=== PATIENT | female | born 1935 | race Caucasian/White ===

== ENCOUNTER 2016-10-05 14:49 | Inpatient (IN) | payer OTHER ==
[2016-10-05] VITALS (19 sets, daily range): BP systolic 84–160; BP diastolic 52–91
[~2016-10-05] VITALS: Ht 154.9 cm; Wt 51.7 kg
--- NOTE | ~2016-10-05 | 2DMMODE ---
[facility] [address] [place] [address] 2 D/M-MODE ECHOCARDIOGRAM Name: WESTON SHAH Room #: 240-P ADM IN M.R.#: [id number] Admission: 10/05/16 Attend Phys: Dontrell Hunter Discharge: Date of : 37 Date of Service: 10/06/16 1338 Report #: [id number] THIS REPORT FOR: //name// APPROVED REPORT Study performed: 10/05/2016 20:04:36 EXAM: Comprehensive 2D, Doppler, and color-flow Echocardiogram Patient Location: Bedside Room #: 240 Status: stat/on-call Other Information Study Quality: Adequate/patient in ICU on vent Indications Stat echo for chest pain and short of breath. Aortic stenosis. 2D Dimensions LVEF(%): 33.33 (>50%) IVSd: 16.24 (7-11mm) LVOT Diam: 20.27 (18-24mm) LVDd: 47.71 mm PWd: 16.48 (7-11mm) LVDs: 40.16 (25-40mm) Ferrari's LVEF: 33.33 % Aortic Valve AoV Peak Kamran.: 2.01 m/s AO Peak Gr.: 16.14 mmHg LVOT Max P.64 mmHg AO Mean Gr.: 9.61 mmHg AO V2 Mean: 1.49 m/s LVOT Max V: 0.64 m/s AO V2 VTI: 36.50 cm DARON Vmax: 1.03 cm2 Mitral Valve E/A Ratio: 0.5 MV Decel. Time: 258.01 ms MV E Max Kamran.: 0.51 m/s MV A Kamran.: 1.11 m/s MV PHT: 74.82 ms Tricuspid Valve TR Peak Kamran.: 1.99 m/s RAP Estimate: 10.00 mmHg TR Peak Gr.: 15.86 mmHg PA Pressure: 26.00 mmHg [facility] [place] [address] 2 D/M-MODE ECHOCARDIOGRAM Name: WESTON SHAH Room #: 240- ADM IN [facility].#: [id number] Admission: 10/05/16 Attend Phys: Dontrell Hunter Discharge: Date of : 37 Date of Service: 10/06/16 1338 Report #: [id number] Left Ventricle The left ventricle is normal size. Moderate concentric left ventricular hypertrophy. Left ventricular systolic function is severely decreased. LVEF 25%. Grade I - abnormal relaxation pattern. Right Ventricle The right ventricle is normal size. Right ventricle is hypokinetic. Atria Left atrium is dilated. The right atrium size is normal. Aortic Valve Aortic valve is heavily calcified. Trace aortic regurgitation. There is moderately- severe valvular aortic stenosis. Calculated aortic valve area is 1.0 cm2 with maximum pressure gradient of 16mmHg and mean pressure gradient of 10mmHg. Mitral Valve Mitral valve leaflets are thickened. There is mitral annular calcification. Mild mitral regurgitation. No evidence of mitral valve stenosis. Tricuspid Valve The tricuspid valve is normal in structure. There is trace tricuspid regurgitation. The right atrial pressure is estimated at 10 mmHg. Estimated PAP is 25-30mmHg. Great Vessels IVC is dilated and collapses >50% with inspiration. Pericardium A small pericardial effusion is noted. <Conclusion> Left ventricular systolic function is severely decreased. LVEF 25%. Grade I diastolic dysfunction Aortic valve is heavily calcified. There is moderately- severe valvular aortic stenosis. Calculated aortic valve area is 1.0 cm2 with maximum pressure gradient of 16mmHg and mean pressure gradient of 10mmHg. Mitral valve leaflets are thickened, mitral annular calcification. [facility] [address] [place] [address] 2 D/M-MODE ECHOCARDIOGRAM Name: WESTON SHAH Room #: 240-P [facility] IN [facility]#: [id number] Admission: 10/05/16 Attend Phys: Dontrell Hunter Discharge: Date of : 37 Date of Service: 10/06/16 1338 Report #: [id number] Mild mitral regurgitation. A small pericardial effusion is noted. <ELECTRONICALLY SIGNED> By: Sarath Rehman MD, [facility] 10/06/16 1338 1338 37 Sarath Rehman MD, [facility] /INF
--- NOTE | ~2016-10-05 | EKG ---
[place] [address] [facility] [place] [address] ELECTROCARDIOGRAM REPORT Name: WESTON SHAH Room #: 240-P ADM IN M.R.#: [id number] Admission: 10/05/16 Attend Phys: Nemesio Ahmadi MD Discharge: Date of : 37 Report #: [id number] THIS REPORT FOR: //name// [facility] ED Test Date: 2016-10-05 Test Time: 15:04:12 Pat Name: WESTON SHAH Department: Room: [facility] Gender: F Tie Puller: [id number] : 1935 Requested By: Rose Bragg Order Number: [id number] MD: Sarath Rehman Measurements Intervals [place] Rate: 88 P: 45 SD: 145 QRS: -40 QRSD: 165 T: 143 QT: 417 QTc: 505 Interpretive Statements Sinus rhythm Probable left atrial enlargement Left bundle branch block No previous ECG available for comparison Electronically Signed On 10-07-2016 10:46:47 CDT by Sarath Rehman [email or web address] <ELECTRONICALLY SIGNED> By: Sarath Rehman MD, [facility] 10/07/16 1046 1504 1504 Sarath Rehman MD, [facility] /EPI
--- NOTE | ~2016-10-05 | HC ---
[facility] [place] [address] [place] [address] CONSULTATION Name: WESTON SHAH Room #: 463-P ADM IN M.R.#: [id number] Admission: 10/05/16 Attend Phys: Nemesio Ahmadi MD Discharge: Date of : 36 Report #: [id number] THIS REPORT FOR: //name// CC: Cat TORRES physician/PCP Tariq Ahmadi DATE OF SERVICE: 10/05/2016 REASON FOR CONSULTATION: Shortness of breath. HISTORY OF PRESENT ILLNESS: The patient is an 81-year-old woman with a fairly limited past history who is currently intubated and sedated and unable to give any history, which is now provided by her son over the telephone. About a week ago, her son went to visit her at her apartment, she was sitting up in a chair short of breath. She felt better throughout the day, although throughout the week, developed progressive exertional breathlessness. They went out to eat on Saturday at lunch and she had trouble getting to the restaurant due to exertional breathlessness. No lower extremity edema. No real chest pain or pressure to speak of. There is no prior history of heart failure, no prior history of myocardial infarction, no history of specific dysrhythmias. Her son tells me that she has felt well and really did not go to doctors if there was no reason to. ALLERGIES: There are no known drug allergies. MEDICATIONS: She takes no medicines on a regular basis. PAST MEDICAL HISTORY: Notable for 2013 shingles eruption, left hip replacement. No other significant illnesses, hospitalizations or surgeries. SOCIAL HISTORY: She is a nonsmoker, although was exposed to second-hand smoke, her was a 5-pack per day smoker. Their family was displaced during World War II. FAMILY HISTORY: Unremarkable for premature coronary disease. REVIEW OF SYSTEMS: Not obtainable. PHYSICAL EXAMINATION: GENERAL: Reveals an elderly woman who is intubated and ventilated. VITAL SIGNS: Blood pressure is 128/91, heart rate is 76, saturations are 97% on supplemental oxygen. HEENT: There are neither xanthelasma, subcutaneous xanthomata, oral mucosal or [facility] [address] [place] [address] CONSULTATION Name: WESTON SHAH Room #: 463-P [facility] IN [facility].#: [id number] Admission: 10/05/16 Attend Phys: Nemesio Ahmadi MD Discharge: Date of : 36 Report #: [id number] digital cyanosis nor kyphoscoliosis present. CHEST: Reveals diffuse rhonchi, bibasilar and mid lung field rales, jugular venous pressure is elevated to the angle of the mandible. Heart sounds are inaudible over her breath sounds. ABDOMEN: Soft, nontender. EXTREMITIES: Without cyanosis, clubbing or edema. Radial pulses are 2+. NEUROLOGIC: She is sedated with a nonfocal exam. LABORATORY DATA: EKG, sinus rhythm, left bundle branch block. Sodium 141, potassium 4.2, creatinine 1.2. Troponin 3.59. ProBNP of 23,000. White count 7.7, hemoglobin 13, hematocrit 41, platelet count 219, pH 7.05, pCO2 of 75, pO2 of 99. Chest x-ray demonstrates bilateral infiltrates. CT of chest demonstrates no evidence of pulmonary embolism. There is diffuse bilateral airspace disease. EKG, sinus rhythm with left bundle branch block. IMPRESSION: 1. Acute systolic heart failure. 2. Hypoxemic respiratory failure. 3. Left bundle branch block. RECOMMENDATIONS: 1. Stat echocardiogram. 2. Intravenous diuretic therapy. 3. Serial cardiac enzymes. Further thoughts and plans will be forthcoming based on this immediate evaluation. Thank you for asking me to participate in the care of this woman; 70 minutes of critical care time, 6:50 p.m. to 8:07 p.m. <ELECTRONICALLY SIGNED> By: Sarath Rehman MD, FACC 10/09/16 1634 2004 0322 Sarath Rehman MD, FACC /nt
--- NOTE | ~2016-10-05 | HC ---
[facility] [place] [address] [place] [address] CONSULTATION Name: WESTON SHAH Room #: 240- ADM IN M.R.#: [id number] Admission: 10/05/16 Attend Phys: Nemesio Ahmadi MD Discharge: Date of : 36 Report #: [id number] THIS REPORT FOR: //name// CC: Cat TORRES physician/PCP Tariq Ahmadi REASON FOR CONSULTATION: Acute respiratory failure. Forty minutes critical care time. IMPRESSION: 1. Acute hypoxic respiratory failure. 2. Acute systolic congestive heart failure. 3. Non-Q wave myocardial infarction. 4. Left bundle branch block. PLAN: Aerosol therapy, ventilator protocol, check cultures. We will cover for possible aspiration, DVT and ulcer prophylaxis per ICU protocol, ventilator protocol discussed with nurse and the ER physician and cardiology. HISTORY OF PRESENT ILLNESS: An 81-year-old female who I met on ventilator complained approximately 7 days ago with severe chest pain and has had increasing difficulty breathing and short of breath. No chest pain at the time in the ER. Required intubation after I spoke to ER physician. MEDICATIONS: Unknown. ALLERGIES: Unknown. FAMILY HISTORY: Noncontributory. SOCIAL HISTORY: Negative tobacco or ETOH. PHYSICAL EXAMINATION: GENERAL: Good health. VITAL SIGNS: Pulse 79, respirations 20, BP 98/50. LUNGS: Crackles bilaterally. HEART: Regular. ABDOMEN: Bowel sounds present. EXTREMITIES: Showed positive edema, varicosities. NEUROLOGIC: Sedated. Currently on ventilator. EKG, left bundle, D-dimer 4.14. BUN 21, creatinine 1.2. Chest x-ray showed bilateral infiltrates. [facility] [address] [place] [address] CONSULTATION Name: WESTON SHAH Room #: 240-P ADM IN M.R.#: [id number] Admission: 10/05/16 Attend Phys: Nemesio Ahmadi MD Discharge: Date of : 36 Report #: [id number] LABORATORY DATA: A pH 7.056, pCO2 of 75, pO2 of 99, BiPAP 14/6, CTA showed bilateral infiltrates, urine legionella and strep were negative. Venous Doppler negative. CT PE, showed no emboli. Troponin 3.59, BNP 23,561. By: 2214 0054 Cat Gillespie MD /nt
[2016-10-05 15:20] LABS: ABSOLUTE NEUTROPHILS 4.9 thou/uL (1.4-8.2); BASOPHILS 0.7 % (0.0-2.0); EOSINOPHILS 2.8 % (0.0-3.0); HEMATOCRIT 41.2 % (37.0-47.0); HEMOGLOBIN 13.8 gm/dL (12.0-15.0); MANUAL DIFF NO; MCH 29.7 pg (26.0-34.0); MCHC 33.5 g/dL (28.0-37.0); MCV 88.6 fL (80.0-100.0); MONOCYTES 10.9 % (1.0-8.0); PLATELET COUNT 219 thou/uL (150-400); POLYS 64.6 % (36.0-66.0); RBC 4.65 mil/uL (4.20-5.00); RDW 13.8 % (10.5-14.5); WBC 7.7 thou/uL (4.0-11.0)
[2016-10-05 15:31] LABS: CREATININE 1.2 mg/dL (0.6-1.0); POTASSIUM 4.2 mmol/L (3.5-5.1)
[2016-10-05 15:47] LABS: TROPONIN-I 3.59 ng/mL (<0.04-0.07)
[2016-10-05 16:50] LABS: ABG SAMPLE TYPE ARTERIAL; BE(vivo) -11.1 mmol/L (-2 to +3); HCO3 20.7 mmol/L (22.0-26.0); LACTATE 2.27 mmol/L (0.5-2.0); O2(CT) 19.2 mL/dL (15.0-23.0); O2Hb 92.5 % (92.0-98.0); PO2 99.3 mmHg (80.0-100.0); sO2 94.1 % (92.0-98.0)
[2016-10-05 16:51] LABS: PCO2 75.3 mmHg (35.0-45.0); STICK SITE L.RADIAL; pH 7.056 (7.360-7.450)
[2016-10-05 16:52] LABS: Pressure Support 14 cm H20
[2016-10-05 20:30] LABS: ABG SAMPLE TYPE ARTERIAL; BE(vivo) -0.8 mmol/L (-2 to +3); HCO3 26.1 mmol/L (22.0-26.0); LACTATE 1.69 mmol/L (0.5-2.0); O2(CT) 19.4 mL/dL (15.0-23.0); O2Hb 93.9 % (92.0-98.0); PCO2 52.4 mmHg (35.0-45.0); PO2 79.2 mmHg (80.0-100.0); sO2 94.6 % (92.0-98.0); tCO2 27.8 mmol/L (24.0-30.0)
[2016-10-05 20:31] LABS: STICK SITE R.RADIAL; TIDAL VOLUME 450 ml; pH 7.316 (7.360-7.450)
[2016-10-05 20:42] LABS: APTT 35.4 Seconds (24.5-32.8); INR 1.1; PROTIME 11.1 Seconds (9.3-11.4)
[2016-10-06] VITALS (84 sets, daily range): BP systolic 71–135; BP diastolic 44–75
[2016-10-06 04:56] LABS: HEMATOCRIT 38.8 % (37.0-47.0); HEMOGLOBIN 12.9 gm/dL (12.0-15.0); MCH 29.3 pg (26.0-34.0); MCHC 33.1 g/dL (28.0-37.0); MCV 88.4 fL (80.0-100.0); PLATELET COUNT 198 thou/uL (150-400); RBC 4.39 mil/uL (4.20-5.00); RDW 14.1 % (10.5-14.5); WBC 10.8 thou/uL (4.0-11.0)
[2016-10-06 05:03] LABS: MANUAL DIFF YES
[2016-10-06 05:27] LABS: ALBUMIN 2.8 g/dL (3.4-5.0); CALCIUM 8.3 mg/dL (8.5-10.1); CREATININE 1.1 mg/dL (0.6-1.0); POTASSIUM 3.7 mmol/L (3.5-5.1); TOTAL BILIRUBIN 0.3 mg/dL (<0.1-1.0); TOTAL PROTEIN 6.5 g/dL (6.4-8.2)
[2016-10-06 05:29] LABS: TROPONIN-I 2.63 ng/mL (<0.04-0.07)
[2016-10-06 05:31] LABS: ABG SAMPLE TYPE ARTERIAL; BE(vivo) 2.6 mmol/L (-2 to +3); HCO3 25.7 mmol/L (22.0-26.0); LACTATE 1.58 mmol/L (0.5-2.0); O2(CT) 18.9 mL/dL (15.0-23.0); O2Hb 97.8 % (92.0-98.0); PCO2 34.6 mmHg (35.0-45.0); PO2 135.9 mmHg (80.0-100.0); pH 7.488 (7.360-7.450); sO2 98.9 % (92.0-98.0); tCO2 26.7 mmol/L (24.0-30.0)
[2016-10-06 05:32] LABS: ABG COMMENT A/C 22; STICK SITE R.RADIAL; TIDAL VOLUME 450 ml
[2016-10-06 05:51] LABS: ABSOLUTE NEUTROPHILS 8.7 thou/uL (1.4-8.2); LARGE PLATELETS OCCASIONAL; TOTAL CELL COUNT 100
[2016-10-06 07:57] LABS: CHOLESTEROL 175 mg/dL (<200); HDL CHOLESTEROL 57 mg/dL (>40); LDL CHOLESTEROL 98 mg/dL (<100); TC:HDL 3.1 Ratio (Not establshd); TRIGLYCERIDE 104 mg/dL (<150); VLDL 21 mg/dL (<40)
[2016-10-07] VITALS (45 sets, daily range): BP systolic 77–142; BP diastolic 45–76
[2016-10-07 05:23] LABS: ABG SAMPLE TYPE ARTERIAL; BE(vivo) 5.6 mmol/L (-2 to +3); LACTATE 1.08 mmol/L (0.5-2.0); O2(CT) 17.5 mL/dL (15.0-23.0); O2Hb 96.7 % (92.0-98.0); PO2 104.8 mmHg (80.0-100.0); pH 7.501 (7.360-7.450); sO2 98.2 % (92.0-98.0); tCO2 30.2 mmol/L (24.0-30.0)
[2016-10-07 05:25] LABS: ABG COMMENT A/C MODE; STICK SITE L.RADIAL; TIDAL VOLUME 450 ml
[2016-10-07 06:12] LABS: HEMATOCRIT 35.5 % (37.0-47.0); HEMOGLOBIN 11.7 gm/dL (12.0-15.0); MCH 29.4 pg (26.0-34.0); MCHC 33.1 g/dL (28.0-37.0); MCV 88.7 fL (80.0-100.0); RBC 3.99 mil/uL (4.20-5.00); RDW 14.2 % (10.5-14.5); WBC 10.2 thou/uL (4.0-11.0)
[2016-10-07 06:26] LABS: CALCIUM 8.4 mg/dL (8.5-10.1); CREATININE 1.2 mg/dL (0.6-1.0); POTASSIUM 3.4 mmol/L (3.5-5.1)
[2016-10-07 15:05] LABS: ABG SAMPLE TYPE ARTERIAL; BE(vivo) 6.4 mmol/L (-2 to +3); LACTATE 1.57 mmol/L (0.5-2.0); O2(CT) 17.9 mL/dL (15.0-23.0); O2Hb 95.8 % (92.0-98.0); PCO2 44.5 mmHg (35.0-45.0); PO2 88.4 mmHg (80.0-100.0); pH 7.461 (7.360-7.450); sO2 97.1 % (92.0-98.0); tCO2 32.4 mmol/L (24.0-30.0)
[2016-10-07 15:06] LABS: ABG COMMENT CPAP TRIAL.; Pressure Support 8 cm H20; STICK SITE L.RADIAL
[2016-10-07 17:16] LABS: MAGNESIUM 2.1 mg/dL (1.8-2.4); POTASSIUM 3.7 mmol/L (3.5-5.1)
[2016-10-08] VITALS (42 sets, daily range): BP systolic 83–151; BP diastolic 50–72
[2016-10-08 04:11] LABS: HEMATOCRIT 35.2 % (37.0-47.0); HEMOGLOBIN 11.9 gm/dL (12.0-15.0); MCH 29.9 pg (26.0-34.0); MCHC 33.8 g/dL (28.0-37.0); MCV 88.5 fL (80.0-100.0); RBC 3.98 mil/uL (4.20-5.00); RDW 14.1 % (10.5-14.5)
[2016-10-08 04:29] LABS: ALBUMIN 2.8 g/dL (3.4-5.0); CALCIUM 8.7 mg/dL (8.5-10.1); CREATININE 1.4 mg/dL (0.6-1.0); POTASSIUM 3.4 mmol/L (3.5-5.1); TOTAL BILIRUBIN 0.5 mg/dL (<0.1-1.0); TOTAL PROTEIN 6.8 g/dL (6.4-8.2)
[2016-10-08 13:15] LABS: ABG SAMPLE TYPE ARTERIAL; BE(vivo) 6.8 mmol/L (-2 to +3); HCO3 31.3 mmol/L (22.0-26.0); LACTATE 1.62 mmol/L (0.5-2.0); O2Hb 95.7 % (92.0-98.0); PCO2 44.4 mmHg (35.0-45.0); pH 7.466 (7.360-7.450); sO2 97.3 % (92.0-98.0); tCO2 32.7 mmol/L (24.0-30.0)
[2016-10-08 13:16] LABS: STICK SITE L.RADIAL
[2016-10-08 13:17] LABS: Pressure Support 8 cm H20; TIDAL VOLUME 470 ml
[2016-10-09] VITALS (16 sets, daily range): BP systolic 79–138; BP diastolic 39–81
[2016-10-09 05:04] LABS: HEMATOCRIT 36.4 % (37.0-47.0); HEMOGLOBIN 12.3 gm/dL (12.0-15.0); MCH 29.8 pg (26.0-34.0); MCHC 33.8 g/dL (28.0-37.0); MCV 88.3 fL (80.0-100.0); RBC 4.13 mil/uL (4.20-5.00); RDW 14.1 % (10.5-14.5); WBC 9.8 thou/uL (4.0-11.0)
[2016-10-09 05:30] LABS: ALBUMIN 2.9 g/dL (3.4-5.0); CALCIUM 9.3 mg/dL (8.5-10.1); CREATININE 1.3 mg/dL (0.6-1.0); POTASSIUM 3.9 mmol/L (3.5-5.1); TOTAL BILIRUBIN 0.7 mg/dL (<0.1-1.0); TOTAL PROTEIN 7.3 g/dL (6.4-8.2)
[2016-10-10 05:20] VITALS: BP 122/67
[2016-10-10 06:15] LABS: HEMATOCRIT 36.6 % (37.0-47.0); HEMOGLOBIN 12.2 gm/dL (12.0-15.0); MCH 29.8 pg (26.0-34.0); MCHC 33.4 g/dL (28.0-37.0); MCV 89.2 fL (80.0-100.0); RBC 4.1 mil/uL (4.20-5.00); RDW 13.7 % (10.5-14.5); WBC 7.5 thou/uL (4.0-11.0)
[2016-10-10 06:30] LABS: CALCIUM 8.9 mg/dL (8.5-10.1); CREATININE 1.1 mg/dL (0.6-1.0)
[2016-10-10 07:37] VITALS: BP 158/65
[2016-10-10 11:45] VITALS: BP 116/62
[2016-10-10 15:00] VITALS: BP 116/62
[2016-10-10 15:28] VITALS: BP 117/73
[2016-10-10] MEDS ORDERED: AUGMENTIN 875875 MG PO (16:41)
[2016-10-10] MEDS ORDERED: CARVEDILOL3.125 MG PO (16:42)
[2016-10-10] MEDS ORDERED: COZAAR 25 MG TA25 M2 PO (16:42)
[2016-10-10] MEDS ORDERED: LIPITOR 20 MG T20 M1 PO (16:42)
[2016-10-10] MEDS ORDERED: ASPIR 8181 MG PO (16:43)
[2016-10-10] MEDS ORDERED: ALDACTONE25 MG PO (16:43)
[2016-10-10] MEDS ORDERED: KLOR-CON 10 ER10 MEQ PO (16:43)
[2016-10-10] MEDS ORDERED: LASIX 20 MG TAB20 MG PO (16:43)
== END 2016-10-10 17:20 | disposition home health service (06) | DRG 208 ==
LOC: ER 14:49 → EROBS 18:08 → ICU 18:08 → 4W 10-09 12:14
PROVIDERS: Emergency Medicine; Family Medicine; Internal Medicine; Internal Medicine Cardiovascular Disease; Internal Medicine Pulmonary Disease
PROC: 02HV33Z Insertion of Infusion Device into Superior Vena Cava, Percutaneous Approach (ICD-10-PCS; principal; 2016-10-05)
PROC: 5A1945Z Respiratory Ventilation, 24-96 Consecutive Hours (ICD-10-PCS; principal; 2016-10-05)
PROC: 0BH17EZ Insertion of Endotracheal Airway into Trachea, Via Natural or Artificial Opening (ICD-10-PCS; principal; 2016-10-05)
DX: J96.01 Acute respiratory failure with hypoxia (principal); I21.4 Non-ST elevation (NSTEMI) myocardial infarction; I50.41 Acute combined systolic (congestive) and diastolic (congestive) heart failure; J69.0 Pneumonitis due to inhalation of food and vomit; E44.0 Moderate protein-calorie malnutrition; I44.7 Left bundle-branch block, unspecified; I35.0 Nonrheumatic aortic (valve) stenosis; R41.0 Disorientation, unspecified; Z96.642 Presence of left artificial hip joint; Z68.21 Body mass index [BMI] 21.0-21.9, adult
CPT/HCPCS: 10045; 10078; 27000

== ENCOUNTER 2018-06-13 10:33 | Emergency (ER) | payer OTHER ==
[~2018-06-13] VITALS: Ht 152.4 cm; Wt 72.6 kg
[~2018-06-13 10:33] MED LIST: ALDACTONE25 MG PO; ASPIR 8181 MG PO; AUGMENTIN 875875 MG PO; CARVEDILOL3.125 MG PO; COZAAR 25 MG TA25 M2 PO; KLOR-CON 10 ER10 MEQ PO; LASIX 20 MG TAB20 MG PO; LIPITOR 20 MG T20 M1 PO
[2018-06-13] MEDS ORDERED: NORCO 5-325 TA1 EACH PO (12:54)
[2018-06-13 13:21] VITALS: BP 137/68
== END 2018-06-13 13:21 | disposition home or self-care (01) ==
LOC: ER 10:33
DX: S42.212A Unspecified displaced fracture of surgical neck of left humerus, initial encounter for closed fracture (principal); W01.0XXA Fall on same level from slipping, tripping and stumbling without subsequent striking against object, initial encounter; Y93.89 Activity, other specified; Y92.89 Other specified places as the place of occurrence of the external cause; Y99.8 Other external cause status

== ENCOUNTER 2019-05-20 10:31 | Inpatient (IN) | payer OTHER ==
[~2019-05-20] VITALS: Ht 152.4 cm; Wt 56.9 kg
[~2019-05-20 10:31] MED LIST changes: +NORCO 5-325 TA1 EACH PO
[2019-05-20 10:36] VITALS: BP 127/61
[2019-05-20] MEDS ORDERED: SPIRONOLACTONE25 MG PO (11:10)
[2019-05-20] MEDS ORDERED: FUROSEMIDE 20 M20 MG PO (11:11)
[2019-05-20] MEDS ORDERED: LUMIGAN2.5 M1 OPHTHALMIC (11:11)
[2019-05-20 11:12] LABS: ABSOLUTE NEUTROPHILS 3.4 thou/uL (1.4-8.2); BASOPHILS 0.6 % (0.0-2.0); EOSINOPHILS 1.7 % (0.0-3.0); HEMATOCRIT 36.9 % (37.0-47.0); HEMOGLOBIN 12.1 gm/dL (12.0-15.0); LYMPHOCYTES 22.1 % (24.0-44.0); MCH 30.5 pg (26.0-34.0); MCHC 32.8 g/dL (28.0-37.0); MCV 92.8 fL (80.0-100.0); PLATELET COUNT 237 thou/uL (150-400); POLYS 65.6 % (36.0-66.0); RBC 3.98 mil/uL (4.20-5.00); RDW 13.7 % (10.5-14.5); WBC 5.1 thou/uL (4.0-11.0)
[2019-05-20 11:15] LABS: CALCIUM 8.8 mg/dL (8.5-10.1)
[2019-05-20 11:24] LABS: TROPONIN-I 0.06 ng/mL (<0.06)
[2019-05-20] MEDS ORDERED: COQ-10100 MG PO (11:53)
[2019-05-20] MEDS ORDERED: COD LIVER OIL1 EAC4 PO (11:53)
[2019-05-20] MEDS ORDERED: GLUCOSAMIN-CHO1 EACH PO (11:53)
[2019-05-20 16:38] VITALS: BP 150/59
[2019-05-20 16:58] VITALS: BP 152/98
[2019-05-20 17:30] VITALS: BP 143/69
--- NOTE | 2019-05-20 18:14 | NUR ---
ASSUMMED PT CARE AT APPROXIMATELY 1730. PT AWAKE AND ORIENTED TO SELF AND SITUATION. PT CONVERSES WELL. PT HAS HX OF DEMENTIA. ASSESSMENT CHARTED. FALL PRECAUTIONS IN PLACE. PT DENIES HAVING CHEST PAIN. PT DENIES HAVING SOB. VITAL SIGNS STABLE. EDUCATED PT ABOUT POC. PT STATED UNDERSTANDING AND DENIED HAVING FURTHER QUESTIONS. PT COMFORTABLE. PT DENIES HAVING FURTHER CONCERS.
[2019-05-20 19:23] VITALS: BP 123/65
[2019-05-20 23:39] VITALS: BP 121/58
[2019-05-21 04:15] VITALS: BP 125/66
--- NOTE | 2019-05-21 05:46 | NUR ---
ASSESSMENTS CHARTED, MEDS GIVEN CHARTED. PATIENT WAS ADMITTED DURING DAY SHIFT C/O NSTEMI,CP, CHF, SOB. ALERT AND ORIENTED X2, HARD OF HEARING. SINUS RHYTHM WITH BBB DURING SHIFT. ON ROOM AIR. C/O PAIN IN RIGHT HIP AND BACK 5/10 WHEN MOVED, BUT DID NOT WANT ANY PAIN MEDICINE. ON CT SCAN, L1 FX IS NEW SINCE LAST SCAN. FALL PRECAUTIONS IN PLACE.
[2019-05-21 06:33] LABS: HEMATOCRIT 37.7 % (37.0-47.0); HEMOGLOBIN 12.3 gm/dL (12.0-15.0); MCH 30.4 pg (26.0-34.0); MCHC 32.6 g/dL (28.0-37.0); MCV 93.2 fL (80.0-100.0); RBC 4.05 mil/uL (4.20-5.00); RDW 13.7 % (10.5-14.5)
[2019-05-21 06:46] LABS: CREATININE 1.1 mg/dL (0.6-1.0)
[2019-05-21 07:37] VITALS: BP 126/70
--- NOTE | 2019-05-21 08:17 | EKG ---
[facility] [place] [address] [place] [address] ELECTROCARDIOGRAM REPORT Name: WESTON SHAH Room #: 205-P ADM IN M.R.#: [id number] Admission: 05/20/19 Attend Phys: Francesco Canales MD Discharge: Date of : 36 Report #: [id number] THIS REPORT FOR: cc: MELISSA - Kusum family physician/PCP MELISSA - No family physician/PCP Sarath Rehman MD [facility] ~ THIS REPORT FOR: //name// [facility] ED Test Date: 2019-05-20 Test Time: 10:35:00 Pat Name: WESTON SHAH Department: Room: [facility] Gender: F Canned Food Reconditioning Inspector: BEN : 1935 Requested By: Rudolph Aldridge Order Number: [id number] MD: Sarath Rehman Measurements Intervals [place] Rate: 75 P: 64 AR: 155 QRS: -57 QRSD: 184 T: 113 QT: 470 QTc: 525 Interpretive Statements Sinus rhythm LAE, consider biatrial enlargement Left bundle branch block Compared to ECG 10/05/2016 15:04:12 No significant changes Electronically Signed On 05-21-2019 8:16:33 BASIN FINISH OPERATOR TIG WELDER by Sarath Rehman [email or web address] <ELECTRONICALLY SIGNED> By: Sarath Rehman MD, [facility] 05/21/19 0816 1035 1035 Sarath Rehman MD, [facility] /EPI
--- NOTE | 2019-05-21 08:30 | EKG ---
[facility] [place] [address] [place] [address] ELECTROCARDIOGRAM REPORT Name: WESTON SHAH Room #: 205-P ADM IN M.R.#: [id number] Admission: 05/20/19 Attend Phys: Francesco Canales MD Discharge: Date of : 36 Report #: [id number] THIS REPORT FOR: cc: MELISSA - Kusum family physician/PCP MELISSA - Kusum family physician/PCP Sarath Rehman MD [facility] THIS REPORT FOR: //name// [facility] ED Test Date: 2019-05-20 Test Time: 15:35:06 Pat Name: WESTON SHAH Department: Room: [facility] Gender: F Nerve Specialist: AALIYAH : 1935 Requested By: Rudolph Aldridge Order Number: [id number] MD: Sarath Rehman Measurements Intervals [place] Rate: 67 P: 71 [place]: 158 QRS: -72 QRSD: 184 T: 120 QT: 490 QTc: 518 Interpretive Statements Sinus rhythm Left atrial enlargement Left bundle branch block Compared to ECG 10/05/2016 15:04:12 No significant changes Electronically Signed On 05-21-2019 8:29:41 IMPROVEMENT LEAD by Sarath Rehman [email or web address] <ELECTRONICALLY SIGNED> By: Sarath Rehman MD, [facility] 05/21/19 0829 1535 1535 Sarath Rehman MD, [facility] /EPI
--- NOTE | 2019-05-21 08:56 | 2DMMODE ---
[facility] [place] [address] [place] [address] 2 D/M-MODE ECHOCARDIOGRAM Name: WESTON SHAH Room #: 205-P ADM IN M.R.#: [id number] Admission: 05/20/19 Attend Phys: Francesco Canales MD Discharge: Date of : 36 Report #: [id number] THIS REPORT FOR: cc: FAM - No family physician/PCP FAM - No family physician/PCP Sarath Rehman MD [facility] ~ APPROVED REPORT Study performed: 05/21/2019 08:06:16 EXAM: Comprehensive 2D, Doppler, and color-flow Echocardiogram Patient Location: Echo lab Room #: [facility] Status: routine BSA: 1.53 HR: 62 bpm BP: 125/66 mmHg Rhythm: LBBB Other Information Study Quality: Good Indications Short of breath, elevated troponin, LBBB. Hx: ISCM, CHF. 2D Dimensions RVDd: 36.55 mm IVSd: 14.00 (7-11mm) LVOT Diam: 20.33 (18-24mm) LVDd: 59.00 mm PWd: 13.00 (7-11mm) LVDs: 47.00 (25-40mm) Aortic Root: 35.06 mm Volumes Left Atrial Volume (Systole) Single Plane 4CH: 42.15 mL Single Plane 2CH: 68.17 mL LA ESV Index: 36.00 mL/m2 Aortic Valve AoV Peak Kamran.: 2.46 m/s AO Peak Gr.: 24.26 mmHg LVOT Max P.48 mmHg AO Mean Gr.: 14.84 mmHg AO V2 Mean: 1.85 m/s LVOT Max V: 0.79 m/s [facility] [address] [place] [address] 2 D/M-MODE ECHOCARDIOGRAM Name: WESTON SHAH Room #: 205-P [facility] IN [facility]#: [id number] Admission: 05/20/19 Attend Phys: Francesco Canales MD Discharge: Date of : 36 Report #: [id number] AO V2 VTI: 49.36 cm DARON Vmax: 1.04 cm2 Mitral Valve E/A Ratio: 0.4 MV Decel. Time: 171.13 ms MV E Max Kamran.: 0.53 m/s MV A Kamran.: 1.22 m/s MV PHT: 49.63 ms IVRT: 110.73 ms Pulmonary Valve PV Peak Kamran.: 1.02 m/s PV Peak Gr.: 4.18 mmHg Pulmonary Vein P Vein S: 0.40 m/s P Vein A: 0.25 m/s P Vein D: 0.28 m/s P Vein A Dur.: 110.7 msec P Vein S/D Ratio: 1.43 Tricuspid Valve TR Peak Kamran.: 2.30 m/s RAP Estimate: 5.00 mmHg TR Peak Gr.: 21.16 mmHg PA Pressure: 26.00 mmHg Left Ventricle Left ventricle is mildly dilated. Paradoxical septal motion consistent with conduction abnormality. There is global hypokinesis of the left ventricle. Mild concentric left ventricular hypertrophy. Left ventricular systolic function is severely decreased. LVEF is 20-25%. Mild diastolic dysfunction is present (impaired relaxation pattern). Right Ventricle The right ventricle is normal size. The right ventricular systolic function is normal. Atria Left atrium is mildly dilated. The right atrium size is normal. Aortic Valve Aortic valve is moderately thickened and calcified, moderately stenotic. Trace aortic regurgitation. Calculated aortic valve area is 1.0 cm2 with maximum pressure gradient of 24mmHg and mean pressure gradient of 15mmHg. [facility] [address] [place] [address] 2 D/M-MODE ECHOCARDIOGRAM Name: WESTON SHAH Room #: [address] [place] [address] IN M.R.#: [id number] Admission: 05/20/19 Attend Phys: Francesco Canales MD Discharge: Date of : 36 Report #: [id number] Mitral Valve Moderate mitral annular calcification. Mild to moderate mitral regurgitation. No evidence of mitral valve stenosis. Tricuspid Valve The tricuspid valve is normal in structure. Mild tricuspid regurgitation. Estimated PAP [id number]. Pulmonic Valve The pulmonary valve is normal in structure. Mild to moderate pulmonic regurgitation. Great Vessels The aortic root is normal in size. Ascending aorta is not well visualized. IVC is normal in size and collapses >50% with inspiration. Pericardium There is no pericardial effusion. <Conclusion> Left ventricular systolic function is severely decreased. LVEF is 20-25%. Mild diastolic dysfunction is present (impaired relaxation pattern). Left atrium is mildly dilated. Aortic valve is moderately thickened and calcified, moderately stenotic. Calculated aortic valve area is 1.0 cm2 with maximum pressure gradient of 24mmHg and mean pressure gradient of 15mmHg. Moderate mitral annular calcification. Mild to moderate mitral regurgitation. Mild tricuspid regurgitation. Estimated pulmonary artery pressure of 25-30mmHg. There is no pericardial effusion. Similar to a study dated September 2016 <ELECTRONICALLY SIGNED> By: Sarath Rehman MD, FACC 05/21/19 0854 3 0854 Sarath Rehman MD, FACC /INF
--- NOTE | 2019-05-21 09:08 | EKG ---
[facility] [place] [address] ELECTROCARDIOGRAM REPORT Name: WESTON SHAH Room #: 205- ADM IN M.R.#: [id number] Admission: 05/20/19 Attend Phys: Farncesco Canales MD Discharge: Date of : 36 Report #: [id number] THIS REPORT FOR: cc: MELISSA - Kusum family physician/PCP MELISSA - No family physician/PCP Sarath Rehman MD [facility] THIS REPORT FOR: //name// [facility] Test Date: 2019-05-21 Test Time: 06:57:46 Pat Name: WESTON SHAH Department: Room: 205 Gender: F Reconciliation Analyst: CAL : 1935 Requested By: Sarath Rehman Order Number: [id number] MD: Sarath Rehman Measurements Intervals [place] Rate: 63 P: 40 [place]: 159 QRS: -47 QRSD: 187 T: 140 QT: 504 QTc: 517 Interpretive Statements Sinus rhythm Left atrial enlargement Left bundle branch block Compared to ECG 10/05/2016 15:04:12 No significant changes Electronically Signed On 05-21-2019 9:07:34 POLYMERIZATION HELPER by Sarath Rehman [email or web address] <ELECTRONICALLY SIGNED> By: Sarath Rehman MD, [facility] 05/21/19 0907 0657 0657 Sarath Rehman MD, [facility] /EPI
[2019-05-21 11:10] VITALS: BP 112/71
[2019-05-21 12:50] VITALS: BP 180/85
--- NOTE | 2019-05-21 14:50 | NUR ---
Case opened to follow for dc planing. Quill Skinner visited with the pt at bedside and son Kai via phone. She is a&ox3 but forgetful. She indicates that she lives in an apt near the hospital ([facility]) with her youngest son Kai. Her oldest son, Abelino lives close by. She reports that both are supportive. She is alone during the daytime as Kai works outside the home. She denies any dme and both deny any falls. Kai reports that he manages her medications but that the pt uses natural pathic supplements. They prefer to limit " taking pills". Encouragement given to discuss any medication recommendtaions with the attending and cardiology and advise the physicians if they do not intend to fill scripts. CHF education discussed with cardiac rehab liason. Therapy evals recommended d/t comp fx and pt with some c/o back pain. The pt's son reports they use a heat pad and cold pack to help with any pain. The pt is open to hh referral if indicated;however her son does not feel HH will be needed. The pt and her son are hoping she will be able to dc home tomorrow and son Abelino can pick her up. Will await therapy evals and care team recommendations. I'm uncertain that the pt's son fully understands her medical issues and encouragement given for ongoing education and discussion with the physicians regarding any f/u care. The pt has had a pcp at [facility] in the past but they have been going to a homeopathic doctor for some time. Cm role introduced. Both pt and her son deny any dc needs or concerns.
[2019-05-21 15:46] VITALS: BP 92/52
--- NOTE | 2019-05-21 17:09 | NUR ---
PT CARE ASSUMED APPROX 0700. ASSESSMENT CHARTED. DENIES PAIN AND SOA. VSS. UP WITH SBA. PT NONCOMPLIANT AND FORGETFUL WITH FALL PRECAUTIONS. SON WAS AT BEDSIDE THIS AM. DR MONIQUE ANSWERED ALL QUESTIONS AND CONCERNS REGARDING PT MEDS AND OUTPT NONPHARMACEUTICAL MEDS. HE DENIES QUESTIONS REGARDING POC. NO DISTRESS NOTED.
[2019-05-21 20:30] VITALS: BP 100/47
[2019-05-22 04:58] VITALS: BP 123/62
[2019-05-22 07:20] VITALS: BP 119/60
[2019-05-22 08:20] VITALS: BP 119/60
[2019-05-22] MEDS ORDERED: LIPITOR 20 MG T20 M1 PO (09:04)
[2019-05-22] MEDS ORDERED: ASPIR 8181 MG PO (09:04)
[2019-05-22] MEDS ORDERED: COREG3.125 MG PO (09:04)
[2019-05-22] MEDS ORDERED: LASIX 20 MG TAB20 MG PO (09:04)
[2019-05-22] MEDS ORDERED: COZAAR 25 MG TA25 M2 PO (09:04)
[2019-05-22] MEDS ORDERED: SPIRONOLACTONE25 M1 PO (09:04)
[2019-05-22] MEDS ORDERED: K-DUR10 MEQ PO (09:04)
[2019-05-22 11:58] VITALS: BP 119/60
--- NOTE | 2019-05-22 11:59 | NUR ---
Pt dc'd home today with her son Abelino. HH f/u and a rwalker recommended by the care team. Pt and her son refused hh referral and rwalker. The pt reports she will not use a rwalker and does not want one. Pt's son informed of care team recommendations for 24hr supervison and concerns for med mngt and risk of falls. He will talk with his brother Kai and they will try to have one of them with her "most of the time". He was receptive to phone numbers for [place] and medic alert systems and feels this could be a good option if she has to be left alone for a few hours at a time. He is familiar with used medical equipment and will check thrift store for a rwalker and bath bench if she changes her mind. They will make a f/u with her pcp and will bring her in for f/u echo and CV appt as noted on her dc instructions. He indicates that they will fill her scripts and plan to follow medication instructions per cardiology. Care team updated as well as the attending. Pt dc'd home with outpt f/u vs HH.
--- NOTE | 2019-05-22 12:34 | NUR ---
PT ASSESSED, VSS, PT IN WITH PT, RECOMMENDS WALKER, DISCUSSED WITH CM AND SON, THEY WILL TRY TO BUY ONE AT A THRIFT STORE, PT AND BOTH SONS DO NOT WANT HOME HEALTH, BUT THEY WILL FOLLOW UP WITH CARDIOLOGY, AND GIVE HER THE HEART MEDS, ALL DC INSTRUCTIONS REVIEWED, PT AND SON VERBALIZED UNDERSTANDING, TELE AND IV REMOVED, PT LEFT WITH SON AND TOOK ALL BELONGINGS.
== END 2019-05-22 12:42 | disposition home or self-care (01) | DRG 280 ==
LOC: ER 10:31 → EROBS 15:44 → 2N 15:44 → ENTRNSPT 05-22 11:48 → EDTRNSPTSTS 05-22 11:51 → 2N 05-22 12:42
PROVIDERS: Emergency Medicine; Internal Medicine; ADMIT Hospitalist
DX: I21.A1 Myocardial infarction type 2 (principal); I50.23 Acute on chronic systolic (congestive) heart failure; I42.9 Cardiomyopathy, unspecified; E46 Unspecified protein-calorie malnutrition; I25.10 Atherosclerotic heart disease of native coronary artery without angina pectoris; F03.90 Unspecified dementia, unspecified severity, without behavioral disturbance, psychotic disturbance, mood disturbance, and anxiety; Z96.642 Presence of left artificial hip joint; E78.5 Hyperlipidemia, unspecified; I35.0 Nonrheumatic aortic (valve) stenosis; I27.20 Pulmonary hypertension, unspecified; Z95.5 Presence of coronary angioplasty implant and graft; Z79.82 Long term (current) use of aspirin; Z79.899 Other long term (current) drug therapy; Z90.49 Acquired absence of other specified parts of digestive tract; Z68.24 Body mass index [BMI] 24.0-24.9, adult
CPT/HCPCS: 10081

== ENCOUNTER → 2019-09-15 | Outpatient (CLI) | payer OTHER ==
[~2019-09-15] MED LIST changes: +COD LIVER OIL1 EAC4 PO; +COQ-10100 MG PO; +COREG3.125 MG PO; +FUROSEMIDE 20 M20 MG PO; +GLUCOSAMIN-CHO1 EACH PO; +K-DUR10 MEQ PO; +LUMIGAN2.5 M1 OPHTHALMIC; +SPIRONOLACTONE25 M1 PO; +SPIRONOLACTONE25 MG PO
== END ==
LOC: SJCVCIMAG 08-11 13:42
PROVIDERS: ATTEND Internal Medicine
DX: I08.8 Other rheumatic multiple valve diseases (principal); I44.7 Left bundle-branch block, unspecified; R94.31 Abnormal electrocardiogram [ECG] [EKG]; I27.20 Pulmonary hypertension, unspecified; I42.9 Cardiomyopathy, unspecified; I11.0 Hypertensive heart disease with heart failure; I50.42 Chronic combined systolic (congestive) and diastolic (congestive) heart failure; I25.10 Atherosclerotic heart disease of native coronary artery without angina pectoris; E78.5 Hyperlipidemia, unspecified; Z79.899 Other long term (current) drug therapy

== ENCOUNTER 2021-02-27 11:56 | Emergency (ER) | payer OTHER ==
[~2021-02-27] VITALS: Ht 157.5 cm; Wt 72.6 kg
--- NOTE | ~2021-02-27 | EMS ---
[place] [address] EMS Patient Care Report Name: WESTON SHAH Room #: DEP SHANIA Scott#: [id number] Admission: 02/27/21 Attend Phys: Discharge: 02/27/21 Date of : 37 Report #: [id number] THIS REPORT FOR: //name// Report Transmitted: 02/27/2021 13:38 EMS Care Summary [place], [place]/[facility] Incident [id number] @ 02/27/2021 11:29 Incident Location [address] [place] [address] Patient WESTON SHAH Female, 86 Years 1935 Patient Address [address] [place] [address] Patient History Congestive Heart Failure (CHF), Patient Allergies No known allergies, Patient Medications None Reported, Chief Complaint INJURY TO LEFT KNEE Disposition Transported No Lights/[place] Dispatch Reason Falls Transported To [facility] Narrative M537 ARRIVED ON SCENE WITH P36 TO FIND PT, A 87YO FEMALE SITTING IN THE DINING ROOM OF HER HOME UPRIGHT IN A CHAIR. PT IS SELF MAINTAINING OWN [place] [address] EMS Patient Care Report Name: WESTON SHAH Room #: DEP SHANIA Scott#: [id number] Admission: 02/27/21 Attend Phys: Discharge: 02/27/21 Date of : 37 Report #: [id number] ON SCENE STATES PT HAD FALLEN YESTERDAY MORNING AND BEGAN TO COMPLAIN ABOUT HER KNEE THROUGHOUT THE DAY. PT STATES THAT SHE HAS BEEN ABLE TO WALK AROUND FOR BRIEF PERIODS OF TIME BUT NOW THE PAIN IS TOO MUCH. PT DENIES HITTING HEAD, LOC, OR TAKING ANY BLOOD THINNERS. PT STATES SHE ONLY HURTS IN HER KNEE. PT KNEE WAS ASSESSED ON SCENE. NO DCAP-BLS NOTED. SLIGHT REDNESS AROUND AREA AND PAIN UPON MOVEMENT. PMS INTACT IN ALL EXTREMITIES. PT HAS STRONG RADIAL PULSES. PT WAS TRANSFERRED FROM DINING ROOM CHAIR TO STAIRCHAIR VIA ASSISTED STAND AND PIVOT. PT TAKEN OUT OF HOUSE AND DOWN THE STAIRS VIA STAIRCHAIR AND LAID ON THE STRETCHER IN A POSITION OF COMFORT AND SECURED WITH ALL AVAILABLE STRAPS. PT LOADED INTO AMBULANCE VIA STRETCHER AND VITALS ASSESSED ON SCENE. PT WAS OFFERED HER KNEE TO BE SPLINTED AND AN ICEPACK TO BE APPLIED HOWEVER PT DECLINED ANY TREATMENT FROM EMS. PT TRANSPORTED TO ED WITHOUT INCIDENT. UPON ARRIVAL PT WAS TAKEN INSIDE VIA STRETCHER AND BROUGHT TO TRIAGE. PT WAS THEN TRANSFERRED FROM STRETCHER TO HOSPITAL WHEELCHAIR VIA ASSISTED LIFT ONTO CHAIR. VERBAL REPORT GIVEN TO RN AND PT CARE TRANSFERRED. M537 RETURN IN SERVICE. Initial Vitals @11:52P: 68,BP: 174/73,SpO2: 99, @11:49P: 77,R: 18,BP: 157/73,Pain: 10/10,GCS: 15,SpO2: 94,Revised Trauma: 12, Assessments @11:41MENTAL:Place Oriented,Event Oriented,Time Oriented,Person Oriented,SKIN:HEENT:Eyes: Right Pupil: 4-mm,Eyes: Left Pupil: 4-mm,LUNG SOUNDS:ABDOMEN:PELVIS//GI:EXTREMITIES:Left Leg: HEMANT,Capillary Refill: Right Upper: < 2 Sec,Left Leg: Weakness,Left Leg: Other,Capillary Refill: Left Lower: < 2 Sec,Left Arm: No Abnormalities,Right Arm: No Abnormalities,Right Leg: No Abnormalities,PULSE:Pedal: 2+ Normal,Radial: 2+ Normal,NEURO:No Abnormalities,@11:45MENTAL:No Abnormalities,SKIN:No Abnormalities,HEENT:Head/Face: No Abnormalities,Eyes: No Abnormalities,Neck/Airway: No Abnormalities,LUNG SOUNDS:General: No Abnormalities,Left Upper: No Abnormalities,Right Upper: No Abnormalities,Left Lower: No Abnormalities,Right Lower: No Abnormalities,ABDOMEN:General: No Abnormalities,Left Upper: No Abnormalities,Right Upper: No Abnormalities,Left Lower: No Abnormalities,Right Lower: No Abnormalities,PELVIS//GI:No Abnormalities,EXTREMITIES:Left Arm: No Abnormalities,Right Arm: No Abnormalities,Left Leg: No Abnormalities,Right Leg: No Abnormalities,PULSE:NEURO:No Abnormalities, Impression Injury of Lower Leg Procedures @11:40 ALS Assessment Response: UnchangedSucceeded @11:45 Stairchair Response: Unchanged [address] [address] EMS Patient Care Report Name: MEAGHANSARAHIStasRicardoWESTON Room #: [facility] SHANIA Scott#: [id number] Admission: 02/27/21 Attend Phys: Discharge: 02/27/21 Date of : 37 Report #: [id number] @11:48 Stretcher Response: Unchanged Timeline 11:24,Call Received 11:24,Dispatch Notified 11:29,Dispatched 11:30,En Route 11:38,On Scene 11:40,At Patient 11:40,ALS Assessment,Response: UnchangedSucceeded, 11:45,Stairchair,Response: Unchanged 11:48,Stretcher,Response: Unchanged 11:49,BP: 157/73 M,PULSE: 77,RR: 18 R,SPO2: 94 Ox,ETCO2: ,BG: ,PAIN: 10,GCS: 15, 11:51,Depart Scene 11:52,BP: 174/73 M,PULSE: 68,RR: R,SPO2: 99 Ox,ETCO2: ,BG: ,PAIN: ,GCS: , 11:53,At Destination 12:15,Call Closed Disclaimer v1.1 Copyright 2020 [employer] This EMS Care Summary contains data elements from the applicable legal record (which may be displayed differently). It is designed to provide pertinent information for the following purposes: continuity of care, clinical quality, and state data reporting. The complete legal record is available to ED staff and administrators of the receiving hospital in [employer]'s Patient Tracker. All data is provided "as is."
[2021-02-27 11:58] VITALS: BP 141/51
[2021-02-27] MEDS ORDERED: NAPROSYN500 MG PO (12:58)
== END 2021-02-27 13:35 | disposition home or self-care (01) ==
LOC: ER 11:56
DX: S83.92XA Sprain of unspecified site of left knee, initial encounter (principal); F02.80 Dementia in other diseases classified elsewhere, unspecified severity, without behavioral disturbance, psychotic disturbance, mood disturbance, and anxiety; I50.9 Heart failure, unspecified; Z98.890 Other specified postprocedural states; Z79.82 Long term (current) use of aspirin; Z79.891 Long term (current) use of opiate analgesic; Z79.899 Other long term (current) drug therapy; W07.XXXA Fall from chair, initial encounter; Y93.89 Activity, other specified; Y92.89 Other specified places as the place of occurrence of the external cause; Y99.8 Other external cause status